=== PATIENT | female | born 1975 | race Caucasian/White ===

== ENCOUNTER → 2020-10-29 | Outpatient (CLI) | payer OTHER ==
[2020-11-01 16:11] LABS: HPV 16 Negative (Negative); HPV 18 Negative (Negative); HPV OTHER HR TYPES Negative (Negative)
== END | disposition home or self-care (01) ==
LOC: LAB SHORT 13:44 → LAB 13:44
PROVIDERS: Internal Medicine
DX: Z01.419 Encounter for gynecological examination (general) (routine) without abnormal findings (principal)
CPT/HCPCS: 87624; G0145